=== PATIENT | female | born 1970 | race Caucasian/White ===

== ENCOUNTER 2017-04-16 15:42 | Emergency (ER) | payer OTHER ==
[~2017-04-16] VITALS: Ht 162.6 cm; Wt 76.0 kg
[2017-04-16] MEDS ORDERED: LISI-538 (16:00)
[2017-04-16] MEDS ORDERED: PHEN-500 (16:00)
[2017-04-16] MEDS ORDERED: NUCY50TA6 PO (16:00)
[2017-04-16] MEDS ORDERED: IBUP-1022 (16:00)
[2017-04-16] MEDS ORDERED: ESTR1TAB (16:00)
[2017-04-16] MEDS ORDERED: BUPR150T3 (16:00)
[2017-04-16] MEDS ORDERED: LATA5OPD (16:00)
[2017-04-16] MEDS ORDERED: GABA-282 (16:00)
[2017-04-16] MEDS ORDERED: NUCY50TA6 (16:00)
[2017-04-16] MEDS ORDERED: NITR100C2 (16:00)
[2017-04-16] MEDS ORDERED: PHENYLEPHRINE 2.5% OPHTH SOL 2ML OS ONE (18:00)
[2017-04-16] MEDS ORDERED: TROPICAMIDE 0.5% OPHTH SOLN 15 ML OS ONE (18:15)
[2017-04-16 19:27] VITALS: BP 116/68
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
== END 2017-04-16 19:28 | disposition home or self-care (01) ==
LOC: M ED 15:42
DX: S05.8X2A Other injuries of left eye and orbit, initial encounter (principal); H43.89 Other disorders of vitreous body; H53.132 Sudden visual loss, left eye; Y04.8XXA Assault by other bodily force, initial encounter; Y92.199 Unspecified place in other specified residential institution as the place of occurrence of the external cause; Y93.89 Activity, other specified; Y99.0 Civilian activity done for income or pay; H40.9 Unspecified glaucoma; F32.9 Major depressive disorder, single episode, unspecified; Z79.899 Other long term (current) drug therapy

== ENCOUNTER 2017-05-21 21:48 | Emergency (ER) | payer BC, OTHER, SELFPAY ==
[~2017-05-21] VITALS: Ht 162.6 cm; Wt 73.5 kg
[~2017-05-21 21:48] MED LIST: BUPR150T3; ESTR1TAB; GABA-282; IBUP-1022; LATA5OPD; LISI-538; NITR100C2; NUCY50TA6; NUCY50TA6 PO; PHEN-500
[2017-05-21] MEDS ORDERED: CALCCHW19 PO (22:03)
[2017-05-21] MEDS ORDERED: MULTCAP11 PO (22:03)
[2017-05-21] MEDS ORDERED: VITA100L PO (22:03)
[2017-05-21] MEDS ORDERED: NS 1,000 ML IV ONE (22:30)
[2017-05-21] MEDS ORDERED: ADACEL/BOOSTRIX VACCINE (DIPHTH/PERTUSS/ACELL/TETANUS)0.5ML SYR (90715) IM ONE (22:30)
[2017-05-21 23:34] LABS: BASO # 0.1 K/mm3 (0.0-0.2); BASO % 1.1 % (0.0-1.0); EOS # 0.2 K/mm3 (0.0-0.50); EOS % 2.2 % (0.0-3.0); LARGE UNSTAINED CELL # 0.2 K/mm3 (0.0-0.4); LARGE UNSTAINED CELL % 2.2 % (0.0-4.0); LYMPH # 1.6 K/mm3 (1.5-4.5); LYMPH % 19.6 % (24.0-44.0); MEAN CORPUSCULAR HEMOGLOBIN 30.8 pg (27.0-33.0); MEAN CORPUSCULAR HGB CONC 33.7 g/dl (32.0-36.5); MEAN CORPUSCULAR VOLUME 91.5 fl (80.0-96.0); MONO # 0.5 K/mm3 (0.0-0.8); MONO % 6.3 % (0.0-5.0); NEUTROPHILS # 5.8 K/mm3 (1.8-7.7); NEUTROPHILS % 68.7 % (36.0-66.0); PLATELET COUNT, AUTOMATED 263 k/mm3 (150-450); WHITE BLOOD COUNT 8.4 K/mm3 (4.0-10.0)
[2017-05-21 23:40] LABS: INR 0.93
[2017-05-21 23:58] LABS: ALBUMIN 4.2 GM/DL (3.2-5.2); ALBUMIN/GLOBULIN RATIO 1.27 (1.00-1.93); ALKALINE PHOSPHATASE 84 U/L (45-117); ALT/SGPT 35 U/L (12-78); ANION GAP 4 MEQ/L (8-16); AST/SGOT 25 U/L (15-37); BILIRUBIN,DIRECT 0.1 MG/DL (0.0-0.2); BILIRUBIN,TOTAL 0.3 MG/DL (0.2-1.0); BLOOD UREA NITROGEN 26 MG/DL (7-18); CALCIUM LEVEL 9.3 MG/DL (8.5-10.1); CARBON DIOXIDE LEVEL 33 MEQ/L (21-32); CHLORIDE LEVEL 106 MEQ/L (98-107); CREATININE FOR GFR 0.93 MG/DL (0.55-1.02); GLOMERULAR FILTRATION RATE > 60.0 (>58); GLUCOSE, FASTING 99 MG/DL (70-105); POTASSIUM SERUM 3.4 MEQ/L (3.5-5.1); SODIUM LEVEL 143 MEQ/L (136-145); TOTAL PROTEIN 7.5 GM/DL (6.4-8.2)
[2017-05-22] MEDS ORDERED: ISOVUE-370 76% 100ML VIAL (Q9967) As Ordered ONE (00:06)
--- NOTE | 2017-05-22 01:20 | REPUSA ---
CLINICAL HISTORY: Neck pain. TECHNIQUE: Multiple axial images were obtained through the cervical spine. Images were also reconstru cted in coronal and sagittal planes. The study was performed without IV contrast. COMMENTS: There is no fracture or spondylolisthesis visualized. The paraspinal soft tissues are unremarkable. T here are no lytic or blastic lesions. Straightening of cervical lordosis is seen, suggesting muscular spasm. There is evidence of minimal m ultilevel disk disease, demonstrated by minimal osteophytosis and endplate sclerosis. No significant disk herniation is noted at any level. Canal and foramina remain patent. IMPRESSION: 1. No fracture or spondylolisthesis. 2. Straightening of cervical lordosis is seen, suggesting muscular spasm. 3. Minimal multilevel spondylosis. Thank you for your kind referral of this patient.
--- NOTE | 2017-05-22 01:40 | REPUSA ---
CLINICAL HISTORY: Trauma. TECHNIQUE: Multiple axial CT images were obtained through chest with IV contrast material. MPR pierre l and sagittal sequences were obtained. COMMENTS: Basilar atelectatic pulmonary changes. There is no evidence of pleural or parenchymal mass. There are no pleural effusions. There is no evid ence of hilar or mediastinal lymphadenopathy. The heart and great vessels are within normal limits. The visualized portions of the liver are of uniform attenuation without mass or defect. There is no i ntra or extrahepatic biliary ductal dilatation. The spleen is unremarkable. The visualized pancreas i s of normal contour and attenuation characteristics. There is no evidence of adrenal mass. The visual ized portions of the kidneys present no abnormalities. The bony structures are free of lytic or blastic lesions. No evidence for abnormal enhancement. IMPRESSION: No evidence of acute thoracic pathology. Thank you for your kind referral of this patient.
--- NOTE | 2017-05-22 01:40 | REPUSA ---
CLINICAL HISTORY: Abdominal pain. TECHNIQUE: Multiple axial, sagittal and coronal CT images were obtained through the abdomen and pelvi s after administration of oral and intravenous contrast material. COMMENTS: Surgical changes of the stomach. The liver is of uniform attenuation without mass or defect. There is no intra or extrahepatic biliary ductal dilatation. The spleen is normal. The gallbladder is surgically absent. The pancreas is of no rmal contour and attenuation characteristics. There is no evidence of adrenal mass. Both kidneys demonstrate prompt and equal nephrograms. The kidneys are normal in size, shape and conf iguration. There is no evidence of renal or ureteral mass. No renal or ureteral calculi are identifie d. There is no hydroureter or hydronephrosis. No evidence for appendicitis. There is no bowel wall thickening. No evidence for small or large ron l obstruction. There is no evidence of abdominal ascites or lymphadenopathy. There is no evidence of intrinsic or extrinsic bladder mass. There is no pelvic ascites or lymphadeno priscila. Images of the lung bases show no evidence of pleural or parenchymal mass. There are no pleural effusi ons. The bony structures are free of lytic or blastic lesions. IMPRESSION: No evidence of acute abdominal or pelvic pathology. Thank you for your kind referral of this patient.
[2017-05-22] MEDS ORDERED: CIPR-249 PO (01:53)
[2017-05-22 02:10] VITALS: BP 120/72
--- NOTE | 2017-05-22 07:20 | ECGEPIP ---
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
--- NOTE | 2017-05-22 07:37 | REP ---
Right hand four views : There is no fracture or dislocation. Mineralization and joint spaces are normal. There are no calcifications or foreign bodies. Impression: Negative right hand . Signed by Abdullahi Brown MD 05/22/2017 07:28 A
--- NOTE | 2017-05-22 07:38 | REP ---
Bilateral knees: Right knee five views: There is tricompartment osteoarthritis. There is no fracture or dislocation. There is no hemarthrosis. No calcifications or foreign bodies. Impression: Tricompartment osteoarthritis. Left knee five views: There is tricompartment osteoarthritis. There is no joint effusion. There is no fracture or dislocation. There are no calcifications or foreign bodies. Impression: Tricompartment osteoarthritis. Signed by Abdullahi Brown MD 05/22/2017 07:29 A
== END 2017-05-22 02:38 | disposition home or self-care (01) ==
LOC: M ED 21:48 → EDUNIT# 21:48 → EDBD 21:48 → M ED 05-22 02:38
DX: N39.0 Urinary tract infection, site not specified (principal); M25.561 Pain in right knee; M25.562 Pain in left knee; V47.5XXA Car driver injured in collision with fixed or stationary object in traffic accident, initial encounter; Y92.410 Unspecified street and highway as the place of occurrence of the external cause; Y93.9 Activity, unspecified; Y99.8 Other external cause status; M17.11 Unilateral primary osteoarthritis, right knee; F32.9 Major depressive disorder, single episode, unspecified; G80.9 Cerebral palsy, unspecified; Z79.899 Other long term (current) drug therapy
CPT/HCPCS: 36415; 70450; 71260; 72125; 73130; 73564; 74177; 80048; 80076; 81001; 82550; 82553; 85025; 85610; 85730; 86850; 86900; 86901; 90472; 90715; 93005; 93041; 94760; 96360; 96361; 99285; G0480; Q9967

== ENCOUNTER 2017-09-06 11:41 | Emergency (ER) | payer OTHER, BC ==
[~2017-09-06] VITALS: Ht 162.6 cm; Wt 70.9 kg
[~2017-09-06 11:41] MED LIST changes: -BUPR150T3; +BUPR150T3 PO; +CALCCHW19 PO; +CIPR-249 PO; -GABA-282; +GABA-282 PO; -LISI-538; +LISI-538 PO; +MULTCAP11 PO; +VITA100L PO
[2017-09-06 11:56] VITALS: BP 130/65
[2017-09-06] MEDS ORDERED: KETOROLAC 60 MG/2 ML VIAL (J1885) IM ONE (14:00)
[2017-09-06] MEDS ORDERED: PERC5TAB12 PO (14:32)
[2017-09-06] MEDS ORDERED: CYCL10TA PO (14:32)
== END 2017-09-06 14:54 | disposition home or self-care (01) ==
LOC: M ED 11:41
DX: M54.5 Low back pain (principal); G89.29 Other chronic pain; X50.9XXA Other and unspecified overexertion or strenuous movements or postures, initial encounter; Y92.59 Other trade areas as the place of occurrence of the external cause; Y93.F9 Activity, other caregiving; Y99.0 Civilian activity done for income or pay; Z79.899 Other long term (current) drug therapy; Z79.890 Hormone replacement therapy; Z98.84 Bariatric surgery status; Z83.3 Family history of diabetes mellitus
CPT/HCPCS: 96372; 99283; J1885

== ENCOUNTER → 2017-12-21 | Outpatient (CLI) | payer BC | LOC: M RAD 13:46 | DX: Z12.31 Encounter for screening mammogram for malignant neoplasm of breast (principal) | CPT/HCPCS: 77067 ==

== ENCOUNTER → 2018-12-16 | Outpatient (CLI) | payer OTHER, MEDICAID ==
[~2018-12-16] MED LIST changes: +CYCL10TA PO; -GABA-282 PO; +GABA-843 PO; +NUCY50TA19; +NUCY50TA19 PO; -NUCY50TA6; -NUCY50TA6 PO; +PERC5TAB12 PO
[2018-12-16 11:09] LABS: HEMATOCRIT 41.9 % (36.0-47.0); HEMOGLOBIN 13.9 g/dl (12.0-15.5); MEAN CORPUSCULAR HEMOGLOBIN 30.4 pg (27.0-33.0); MEAN CORPUSCULAR HGB CONC 33.2 g/dl (32.0-36.5); MEAN CORPUSCULAR VOLUME 91.7 fl (80.0-96.0); PLATELET COUNT, AUTOMATED 241 10^3/uL (150-450); RED BLOOD COUNT 4.57 10^6/uL (4.00-5.40); WHITE BLOOD COUNT 5.9 10^3/uL (4.0-10.0)
[2018-12-16 11:35] LABS: ALT/SGPT 20 U/L (12-78); BILIRUBIN,TOTAL 0.6 MG/DL (0.2-1.0); BLOOD UREA NITROGEN 24 MG/DL (7-18); CALCIUM LEVEL 9.4 MG/DL (8.5-10.1); CARBON DIOXIDE LEVEL 33 MEQ/L (21-32); CHLORIDE LEVEL 102 MEQ/L (98-107); CHOLESTEROL LEVEL 201 MG/DL (<200); CHOLESTEROL RISK RATIO 2.233 (<5); CREATININE FOR GFR 0.56 MG/DL (0.55-1.30); GLOMERULAR FILTRATION RATE > 60.0 (>58); GLUCOSE, FASTING 80 MG/DL (70-100); HDL CHOLESTEROL 90 MG/DL (>40); LDL CHOLESTEROL 96 MG/DL (<100); NON-HDL-C 111 MG/DL; POTASSIUM SERUM 4.3 MEQ/L (3.5-5.1); SODIUM LEVEL 141 MEQ/L (136-145); TOTAL PROTEIN 6.8 GM/DL (6.4-8.2); TRIGLYCERIDES LEVEL 77 MG/DL (<150)
[2018-12-16 11:57] LABS: TOTAL 25(OH) VITAMIN D 39.9 NG/ML (30.0-100.0)
--- NOTE | 2018-12-16 12:24 | REP ---
CERVICAL SPINE SERIES: Seven views cervical spine performed. These include flexion and extension lateral views. There is no compression or malalignment with normal cervical lordosis. There is no prevertebral soft tissue swelling. There is mild spurring anteriorly of C3 and C4. There is mild to moderate posterior osteophytic ridging at C6-7. There is mild disc space narrowing at that level. Uncovertebral spurring appears to cause mild to moderate neural foraminal narrowing at C6-7 on the left. IMPRESSION: Degenerative changes as above. I suspect mild to moderate neural foramina narrowing on the left at the C6-7 level. Electronically Signed by Abdullahi Carlson MD 12/19/2018 11:07 A
== END ==
LOC: M LAB 09:59
PROVIDERS: ATTEND Nurse Practitioner Family
DX: I10 Essential (primary) hypertension (principal); R53.83 Other fatigue; M54.2 Cervicalgia

== ENCOUNTER → 2019-02-23 | Outpatient (CLI) | payer OTHER, MEDICAID ==
[~2019-02-23] MED LIST changes: +LATA0.0013; -LATA5OPD
[2019-02-23 10:22] LABS: HEMATOCRIT 42.9 % (36.0-47.0); HEMOGLOBIN 14.1 g/dl (12.0-15.5); MEAN CORPUSCULAR HEMOGLOBIN 31.5 pg (27.0-33.0); MEAN CORPUSCULAR HGB CONC 32.9 g/dl (32.0-36.5); PLATELET COUNT, AUTOMATED 224 10^3/uL (150-450); RED BLOOD COUNT 4.47 10^6/uL (4.00-5.40); WHITE BLOOD COUNT 4.9 10^3/uL (4.0-10.0)
[2019-02-23 10:28] LABS: APPEARANCE, URINE CLEAR (CLEAR); BACTERIA, URINE AUTO NEGATIVE (NEGATIVE); BILIRUBIN, URINE AUTO NEGATIVE (NEGATIVE); BLOOD, URINE BLOOD NEGATIVE (NEGATIVE); COLOR, URINE YELLOW (YELLOW); GLUCOSE, URINE (UA) AUTO NEGATIVE (NEGATIVE); KETONE, URINE AUTO NEGATIVE (NEGATIVE); LEUKOCYTE ESTERASE, URINE AUTO NEGATIVE (NEGATIVE); NITRITE, URINE AUTO NEGATIVE (NEGATIVE); PROTEIN, URINE AUTO NEGATIVE (NEGATIVE); RBC, URINE AUTO 0 /HPF (0-3); SPECIFIC GRAVITY URINE AUTO 1.018 (1.002-1.035); SQUAMOUS EPITHELIAL CELL UR AU 0 /HPF (0-6); UROBILINOGEN, URINE AUTO 0.2 mg/dL (0.0-2.0); WBC, URINE AUTO 0 /HPF (0-3)
[2019-02-23 10:50] LABS: ALBUMIN 3.8 GM/DL (3.2-5.2); ALT/SGPT 19 U/L (12-78); BILIRUBIN,TOTAL 0.5 MG/DL (0.2-1.0); BLOOD UREA NITROGEN 20 MG/DL (7-18); CALCIUM LEVEL 8.8 MG/DL (8.5-10.1); CARBON DIOXIDE LEVEL 33 MEQ/L (21-32); CHLORIDE LEVEL 105 MEQ/L (98-107); CPK CREATINE PHOSPHOKINASE 117 U/L (26-192); CREATININE FOR GFR 0.64 MG/DL (0.55-1.30); GLOMERULAR FILTRATION RATE > 60.0 (>58); GLUCOSE, FASTING 77 MG/DL (70-100); POTASSIUM SERUM 4.2 MEQ/L (3.5-5.1); SODIUM LEVEL 142 MEQ/L (136-145); TOTAL PROTEIN 6.9 GM/DL (6.4-8.2)
[2019-02-23 10:52] LABS: ERYTHROCYTE SEDIMENTATION RATE 7 mm/hr (0-20)
[2019-02-23 10:58] LABS: MALB URINE SIEMENS < 5.0 MG/L; MAU/CREAT RATIO 4.3 MCG/MG (0.0-30.0)
[2019-02-23 11:00] LABS: FOLATE > 24.0 NG/ML
[2019-02-23 11:05] LABS: VITAMIN B12 LEVEL 739 PG/ML
[2019-02-24 14:11] LABS: ANTINUCLEAR ANTIBODIES DIRECT Negative (Negative)
[2019-02-28 10:38] LABS: DRVV SCREEN 40.8 SEC
[2019-03-01 14:11] LABS: ANTI DS-DNA AB <1:10 titer (.)
== END ==
LOC: M LAB 09:12
PROVIDERS: ATTEND Nurse Practitioner Family
DX: M79.10 Myalgia, unspecified site (principal); E53.8 Deficiency of other specified B group vitamins

== ENCOUNTER 2019-11-03 06:00 | Emergency (ER) | payer BC, MEDICAID, OTHER, SELFPAY ==
[~2019-11-03] VITALS: Ht 162.6 cm; Wt 76.8 kg
[2019-11-03 06:33] LABS: BASO # 0.1 10^3/uL (0.0-0.2); EOS # 0.1 10^3/uL (0.0-0.5); EOS % 1.4 % (0.0-3.0); HEMATOCRIT 45.8 % (36.0-47.0); HEMOGLOBIN 14.6 g/dl (12.0-15.5); LYMPH # 1.3 10^3/uL (1.5-5.0); LYMPH % 20.7 % (24.0-44.0); MEAN CORPUSCULAR HEMOGLOBIN 29.3 pg (27.0-33.0); MEAN CORPUSCULAR HGB CONC 31.9 g/dl (32.0-36.5); MONO # 0.5 10^3/uL (0.0-0.8); MONO % 8.5 % (0.0-5.0); NEUTROPHILS # 4.3 10^3/uL (1.5-8.5); NEUTROPHILS % 68.1 % (36.0-66.0); PLATELET COUNT, AUTOMATED 231 10^3/uL (150-450); RED BLOOD COUNT 4.98 10^6/uL (4.00-5.40); WHITE BLOOD COUNT 6.3 10^3/uL (4.0-10.0)
[2019-11-03 06:48] LABS: INR 0.97; PROTHROMBIN TIME 12.6 SECONDS (11.8-14.0)
[2019-11-03 07:03] LABS: ALBUMIN 4.1 GM/DL (3.2-5.2); ALT/SGPT 21 U/L (12-78); BILIRUBIN,DIRECT 0.1 MG/DL (0.0-0.2); BILIRUBIN,TOTAL 0.5 MG/DL (0.2-1.0); CK-MB VALUE MASS 1.8 NG/ML (<3.6); CPK CREATINE PHOSPHOKINASE 244 U/L (26-192); LIPASE 129 U/L (73-393); MB/CK RELATIVE INDEX 0.74 (< OR =4); TOTAL PROTEIN 7.2 GM/DL (6.4-8.2); TROPONIN I < 0.02 NG/ML (< 0.10)
[2019-11-03] MEDS ORDERED: MECLIZINE 25 MG TABLET PO ONE (07:15)
[2019-11-03] MEDS ORDERED: hydroCHLOROthiazide 12.5 MG CAPSULE PO ONE (07:15)
[2019-11-03] MEDS ORDERED: lisinopriL 10 MG TAB PO ONE (07:15)
[2019-11-03 07:36] VITALS: BP 172/105
--- NOTE | 2019-11-03 07:54 | REPVR ---
PROCEDURE INFORMATION: Exam: CT Head Without Contrast Exam date and time: 11/03/2019 7:03 AM Age: 48 years old Clinical indication: Dizziness; Additional info: Dizzzy TECHNIQUE: Imaging protocol: Computed tomography of the head without contrast. Radiation optimization: All CT scans at this facility use at least one of these dose optimization techniques: automated exposure control; mA and/or kV adjustment per patient size (includes targeted exams where dose is matched to clinical indication); or iterative reconstruction. COMPARISON: CT Head without contrast 05/22/2017 12:06 AM FINDINGS: Brain: Normal. No hemorrhage. Unremarkable white matter. No mass effect. Ventricles: The ventricles and sulci are stable in configuration. Bones/joints: Unremarkable. No acute fracture. Sinuses: Visualized sinuses are unremarkable. No fluid levels. Mastoid air cells: Visualized mastoid air cells are well aerated. Soft tissues: Unremarkable. IMPRESSION: No CT evidence for acute intracranial abnormality or significant change since 05/22/17. Electronically signed by: Enoc Jackson On 11/03/2019 07:53:37 AM
--- NOTE | 2019-11-03 07:55 | REP ---
Portable chest, 07:27 a.m., single AP view with the patient upright: There are no comparisons. The lung paz are clear. The cardiac size is normal. The cyrus, mediastinum, and skeletal structures are unremarkable. Impression: Negative portable chest. Electronically Signed by Abdullahi Brown MD 11/03/2019 07:47 A
[2019-11-03] MEDS ORDERED: LISI10TA15 PO (09:57)
[2019-11-03] MEDS ORDERED: MECL1TAB31 PO (09:57)
[2019-11-03 10:39] VITALS: BP 155/95
--- NOTE | 2019-11-03 20:26 | ECGEPIP ---
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
== END 2019-11-03 10:42 | disposition home or self-care (01) ==
LOC: M ED 06:00
DX: I10 Essential (primary) hypertension (principal); R53.1 Weakness; H81.399 Other peripheral vertigo, unspecified ear

== ENCOUNTER → 2019-12-20 | Outpatient (CLI) | payer BC ==
[~2019-12-20] MED LIST changes: +LISI10TA15 PO; +MECL1TAB31 PO
--- NOTE | 2019-12-20 16:58 | REP ---
MRI right knee without contrast: History: Osteoarthritis. Rule out occult fracture. Comparison radiographs of the right knee are from May 21, 2017. Technique: Axial, coronal and sagittal imaging planes utilized. T1 and T2-weighted scans were obtained in the usual fashion with and without fat saturation. MRI findings: Cortical and medullary bone signal intensity are normal. There is no evidence of occult fracture. There is a small to moderate knee joint effusion. No discernible Saenz's cyst is appreciated. There is advanced three compartment osteoarthritis with tibial, femoral and patellofemoral well established osteophyte formation. There is moderate chondromalacia in the central patellar articular cartilage and in the opposing femoral trochlear articular cartilage. There is advanced chondromalacia change in the medial compartment with full-thickness T2 hyperintensity and some diffuse thinning on both sides of the tibiofemoral articulation medially. There is moderate partial thickness chondromalacia in the lateral femoral condyle. The patellar and quadriceps tendons appear intact. Anterior cruciate ligament is thin and is bowed by some femoral trochlear spurs, but appears to be intact. Posterior cruciate ligament appears intact. There is medial bowing of the intact medial collateral ligament. No evidence of lateral collateral ligament disruption is seen. There is mild medial meniscal extrusion. There is a complex principally vertical tear in the posterior horn of the medial meniscus. The anterior horn of the medial meniscus is quite diminutive and this is associated with the medial extrusion. No displaced meniscal material is appreciated. No lateral meniscal tear is seen. Impression: Advanced three compartment osteoarthritis. No evidence of occult fracture. Joint effusion. Advanced chondromalacia changes most pronounced medially. Posterior horn degenerative tear medial meniscus. Electronically Signed by Chuck Major MD 12/20/2019 05:02 P
== END ==
LOC: M RAD 14:54
PROVIDERS: ATTEND Physician Assistant Surgical
DX: M17.11 Unilateral primary osteoarthritis, right knee (principal)

== ENCOUNTER 2021-01-08 16:16 | Emergency (ER) | payer BC ==
[~2021-01-08] VITALS: Ht 162.6 cm; Wt 82.1 kg
[~2021-01-08 16:16] MED LIST changes: +BUPR150T12 PO; -BUPR150T3 PO; +CYCL-707 PO; -CYCL10TA PO; +GABA-282 PO; -GABA-843 PO; -LISI-538 PO; +LISI20TA33 PO
[2021-01-08] MEDS ORDERED: ROSU5TAB5 (16:38)
[2021-01-08] MEDS ORDERED: CYCL100C5 PO (16:38)
[2021-01-08] MEDS ORDERED: LISI10TA15 PO (16:43)
[2021-01-08 18:12] LABS: BASO # 0.1 10^3/uL (0.0-0.2); BASO % 0.8 % (0.0-1.0); EOS # 0.2 10^3/uL (0.0-0.5); EOS % 2.2 % (0.0-3.0); HEMATOCRIT 39.6 % (36.0-47.0); HEMOGLOBIN 13.2 g/dl (12.0-15.5); LYMPH # 1.8 10^3/uL (1.5-5.0); LYMPH % 17.6 % (24.0-44.0); MEAN CORPUSCULAR HEMOGLOBIN 31.1 pg (27.0-33.0); MEAN CORPUSCULAR HGB CONC 33.3 g/dl (32.0-36.5); MEAN CORPUSCULAR VOLUME 93.4 fl (80.0-96.0); MONO # 0.9 10^3/uL (0.0-0.8); MONO % 8.3 % (2.0-8.0); NEUTROPHILS # 7.2 10^3/uL (1.5-8.5); NEUTROPHILS % 70.8 % (36.0-66.0); PLATELET COUNT, AUTOMATED 231 10^3/uL (150-450); RED BLOOD COUNT 4.24 10^6/uL (4.00-5.40); WHITE BLOOD COUNT 10.2 10^3/uL (4.0-10.0)
[2021-01-08] MEDS ORDERED: NS 1,000 ML IV ONE (18:20)
[2021-01-08] MEDS ORDERED: KETOROLAC 30 MG/ML 1ML VIAL IV ONE (18:20)
[2021-01-08 18:36] LABS: HCG, SERUM QUALITATIVE NEGATIVE (NEGATIVE)
[2021-01-08 18:40] LABS: ALBUMIN 3.9 GM/DL (3.2-5.2); ALT/SGPT 22 U/L (12-78); BILIRUBIN,DIRECT 0.2 MG/DL (0.0-0.2); BILIRUBIN,TOTAL 0.4 MG/DL (0.2-1.0); LIPASE 149 U/L (73-393); TOTAL PROTEIN 6.9 GM/DL (6.4-8.2)
--- NOTE | 2021-01-08 19:05 | REPVR ---
PROCEDURE INFORMATION: Exam: CT Abdomen And Pelvis Without Contrast Exam date and time: 01/08/2021 6:47 PM Age: 50 years old Clinical indication: Abdominal pain; Localized; Right; Additional info: Right flank pain TECHNIQUE: Imaging protocol: Computed tomography of the abdomen and pelvis without contrast. Radiation optimization: All CT scans at this facility use at least one of these dose optimization techniques: automated exposure control; mA and/or kV adjustment per patient size (includes targeted exams where dose is matched to clinical indication); or iterative reconstruction. COMPARISON: CT ABD PELVIS WITH CONTRAST 05/22/2017 12:20 AM FINDINGS: Mediastinal space: A small sliding hiatal hernia is present. Liver: Normal. No mass. Gallbladder and bile ducts: There has been a cholecystectomy. Pancreas: Normal. No ductal dilation. Spleen: Normal. No splenomegaly. Adrenal glands: Normal. No mass. Kidneys and ureters: Normal. No hydronephrosis. Stomach and bowel: This patient is status post gastric bypass surgery. There is increased feces throughout the colon consistent with constipation. Appendix: The appendix is within normal limits. There is no appendiceal enlargement, periappendiceal inflammatory changes or abscess. Intraperitoneal space: Unremarkable. No free air. No significant fluid collection. Vasculature: Unremarkable. No abdominal aortic aneurysm. Lymph nodes: Unremarkable. No enlarged lymph nodes. Urinary bladder: Unremarkable as visualized. Reproductive: There has been a hysterectomy. Bones/joints: Moderate central spinal stenosis L4-L5. Bulging annulus L5-S1. Shallow dextroscoliosis. Soft tissues: Unremarkable. IMPRESSION: 1. This patient is status post gastric bypass surgery. 2. A small sliding hiatal hernia is present. 3. There has been a cholecystectomy. 4. The appendix is within normal limits. There is no appendiceal enlargement, periappendiceal inflammatory changes or abscess. 5. There is increased feces throughout the colon consistent with constipation. 6. There has been a hysterectomy. Electronically signed by: Helio Flores On 01/08/2021 19:06:00 PM
[2021-01-08] MEDS ORDERED: CIPROFLOXACIN 500MG TABLET PO ONE (19:10)
[2021-01-08] MEDS ORDERED: CIPR-249 PO (20:00)
[2021-01-08 20:29] VITALS: BP 165/99
== END 2021-01-08 20:34 | disposition home or self-care (01) ==
LOC: M ED 16:16
DX: N39.0 Urinary tract infection, site not specified (principal); R51.9 Headache, unspecified; R42 Dizziness and giddiness; Z98.84 Bariatric surgery status; Z90.49 Acquired absence of other specified parts of digestive tract; Z90.710 Acquired absence of both cervix and uterus; K59.00 Constipation, unspecified; I10 Essential (primary) hypertension; E78.5 Hyperlipidemia, unspecified; G80.9 Cerebral palsy, unspecified; M54.9 Dorsalgia, unspecified; F33.9 Major depressive disorder, recurrent, unspecified; Z79.899 Other long term (current) drug therapy
CPT/HCPCS: 74176; 80047; 80076; 81001; 83690; 84703; 85025; 87088; 87186; 96361; 96374; 99284; J1885

== ENCOUNTER → 2021-01-15 | Outpatient (CLI) | payer BC ==
[~2021-01-15] MED LIST changes: +CYCL100C5 PO; +ROSU5TAB5
[2021-01-15 11:38] LABS: BASO # 0.1 10^3/uL (0.0-0.2); BASO % 1.3 % (0.0-1.0); EOS # 0.2 10^3/uL (0.0-0.5); EOS % 2.9 % (0.0-3.0); HEMATOCRIT 42.3 % (36.0-47.0); HEMOGLOBIN 13.8 g/dl (12.0-15.5); LYMPH % 27.5 % (24.0-44.0); MEAN CORPUSCULAR HEMOGLOBIN 30.5 pg (27.0-33.0); MEAN CORPUSCULAR HGB CONC 32.6 g/dl (32.0-36.5); MEAN CORPUSCULAR VOLUME 93.4 fl (80.0-96.0); MONO # 0.6 10^3/uL (0.0-0.8); MONO % 8.6 % (2.0-8.0); NEUTROPHILS # 4.3 10^3/uL (1.5-8.5); NEUTROPHILS % 59.3 % (36.0-66.0); PLATELET COUNT, AUTOMATED 267 10^3/uL (150-450); RED BLOOD COUNT 4.53 10^6/uL (4.00-5.40); WHITE BLOOD COUNT 7.2 10^3/uL (4.0-10.0)
== END ==
LOC: M LAB 10:54
PROVIDERS: ATTEND Registered Nurse
DX: M25.561 Pain in right knee (principal)

== ENCOUNTER → 2021-01-15 | Outpatient (CLI) | payer BC ==
[2021-01-15 11:40] LABS: HEMOGLOBIN 13.9 g/dl (12.0-15.5); MEAN CORPUSCULAR HEMOGLOBIN 30.9 pg (27.0-33.0); MEAN CORPUSCULAR HGB CONC 33.1 g/dl (32.0-36.5); MEAN CORPUSCULAR VOLUME 93.3 fl (80.0-96.0); PLATELET COUNT, AUTOMATED 269 10^3/uL (150-450); WHITE BLOOD COUNT 7.1 10^3/uL (4.0-10.0)
[2021-01-15 11:50] LABS: INR 0.85; PROTHROMBIN TIME 11.8 SECONDS (12.5-14.3)
[2021-01-15 12:14] LABS: ERYTHROCYTE SEDIMENTATION RATE 27 mm/hr (0-20)
[2021-01-15 12:21] LABS: ALBUMIN 3.9 GM/DL (3.2-5.2); ALT/SGPT 18 U/L (12-78); BILIRUBIN,TOTAL 0.5 MG/DL (0.2-1.0); BLOOD UREA NITROGEN 27 MG/DL (7-18); CALCIUM LEVEL 9.9 MG/DL (8.5-10.1); CARBON DIOXIDE LEVEL 32 MEQ/L (21-32); CHLORIDE LEVEL 108 MEQ/L (98-107); CREATININE FOR GFR 0.91 MG/DL (0.55-1.30); GLOMERULAR FILTRATION RATE > 60.0 (>58); GLUCOSE, FASTING 84 MG/DL (70-100); POTASSIUM SERUM 4.8 MEQ/L (3.5-5.1); SODIUM LEVEL 142 MEQ/L (136-145)
--- NOTE | 2021-01-15 14:32 | REP ---
INDICATION: PRE OP TESTING/RIGHT KNEE PAIN / LAB . COMPARISON: None. TECHNIQUE: PA and lateral chest. FINDINGS: The cardiovascular silhouette is within normal limits. The lungs are clear. Mediastinum and bony thorax are unremarkable. IMPRESSION: Normal chest. <Electronically signed by Amador Li > 01/15/21 1427
--- NOTE | 2021-01-15 17:09 | ECGEPIP ---
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
== END ==
LOC: M LAB 10:56
PROVIDERS: ATTEND Orthopaedic Surgery
DX: Z01.818 Encounter for other preprocedural examination (principal); M17.11 Unilateral primary osteoarthritis, right knee

== ENCOUNTER 2021-03-30 12:02 | Emergency (ER) | payer BC, MEDICAID, OTHER, SELFPAY ==
[~2021-03-30] VITALS: Ht 152.4 cm; Wt 75.9 kg
[2021-03-30 12:46] LABS: BASO # 0.1 10^3/uL (0.0-0.2); BASO % 0.8 % (0.0-1.0); EOS # 0.2 10^3/uL (0.0-0.5); EOS % 1.8 % (0.0-3.0); HEMATOCRIT 40.2 % (36.0-47.0); HEMOGLOBIN 12.9 g/dl (12.0-15.5); LYMPH # 1.6 10^3/uL (1.5-5.0); LYMPH % 19.3 % (24.0-44.0); MEAN CORPUSCULAR HEMOGLOBIN 29.6 pg (27.0-33.0); MEAN CORPUSCULAR HGB CONC 32.1 g/dl (32.0-36.5); MEAN CORPUSCULAR VOLUME 92.2 fl (80.0-96.0); MONO # 0.6 10^3/uL (0.0-0.8); MONO % 7.4 % (2.0-8.0); NEUTROPHILS # 5.8 10^3/uL (1.5-8.5); NEUTROPHILS % 70.3 % (36.0-66.0); PLATELET COUNT, AUTOMATED 275 10^3/uL (150-450); RED BLOOD COUNT 4.36 10^6/uL (4.00-5.40); WHITE BLOOD COUNT 8.3 10^3/uL (4.0-10.0)
--- NOTE | 2021-03-30 13:07 | REP ---
INDICATION: CHEST PAIN. COMPARISON: 01/15/2021 FINDINGS: The technique utilized in obtaining the radiograph has magnified the cardiac silhouette and accentuated the interstitial markings. The superior mediastinal structures are midline. The cardiac silhouette is unremarkable in size, shape, and position. The diaphragmatic surfaces of the lungs are regular, and the costophrenic angles are clear. The pulmonary paz are clear. The imaged osseous structures are intact. Incidental note is made of a calcified lymph node in the left hilum which has been stable for years. This was seen on chest CT of 05/22/2017. IMPRESSION: There is no acute cardiopulmonary disease. <Electronically signed by Anton Bassett > 03/30/21 [id number]
[2021-03-30 13:13] LABS: BLOOD UREA NITROGEN 34 MG/DL (7-18); CALCIUM LEVEL 9.7 MG/DL (8.5-10.1); CARBON DIOXIDE LEVEL 30 MEQ/L (21-32); CHLORIDE LEVEL 101 MEQ/L (98-107); CK-MB VALUE MASS < 1.0 NG/ML (<3.6); CPK CREATINE PHOSPHOKINASE 92 U/L (26-192); CREATININE FOR GFR 1.07 MG/DL (0.55-1.30); GLUCOSE, FASTING 122 MG/DL (70-100); MB/CK RELATIVE INDEX 1.09 (< OR =4); POTASSIUM SERUM 3.8 MEQ/L (3.5-5.1); SODIUM LEVEL 135 MEQ/L (136-145); TROPONIN I < 0.02 NG/ML (< 0.10)
[2021-03-30] MEDS ORDERED: METOCLOPRAMIDE INJ 10MG/2ML VIAL (J2765 PER 1) IV ONE (13:40)
[2021-03-30] MEDS ORDERED: diphenhydrAMINE 50MG/ML VIAL (J1200) IV ONE (13:40)
[2021-03-30] MEDS ORDERED: NS 1,000 ML IV ONE (13:40)
[2021-03-30] MEDS ORDERED: ACETAMINOPHEN 500 MG TAB PO ONE (13:40)
[2021-03-30 14:01] LABS: C REACTIVE PROTEIN QUANTITATIV < 0.30 MG/DL (0.00-0.30)
--- NOTE | 2021-03-30 14:05 | REP ---
INDICATION: left sided headache. COMPARISON: 05/22/2017 TECHNIQUE: 4.5 mm contiguous transaxial sections were obtained from the skull base to the cerebral convexities with thin cuts through the posterior fossa without the administration of intravenous contrast. FINDINGS: The ventricles and sulci are consistent with the patient's age. There are no extra-axial fluid collections. There is no mass effect. The deep cerebral white matter is consistent with the patient's age. The orbital and petrous structures, cerebellopontine angles, and posterior fossa are unremarkable. The sella turcica, cavernous, and paracavernous structures are essentially unremarkable. The visualized portions of the paranasal sinuses and mastoid air cells are clear. Images of the skull base show no gross abnormality. IMPRESSION: Essentially unremarkable CT examination of the brain. No change from the prior exam <Electronically signed by Anton Bassett > 03/30/21 1815
[2021-03-30 14:18] LABS: ERYTHROCYTE SEDIMENTATION RATE 27 mm/hr (0-20)
--- NOTE | 2021-03-30 14:36 | ECGEPIP ---
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
[2021-03-30] MEDS ORDERED: KETOROLAC 30 MG/ML 1ML VIAL IV ONE (15:00)
[2021-03-30] MEDS ORDERED: MAG SULF 1GM/100ML (MAG RUN) 1 GM in IV 1 EA IV ONE (15:05)
[2021-03-30] MEDS ORDERED: dexameTHASONE 4 MG/ML 1ML VIAL (J1100 PER 1MG) IV ONE (15:05)
[2021-03-30 16:31] VITALS: BP 167/96
== END 2021-03-30 16:33 | disposition home or self-care (01) ==
LOC: M ED 12:02
DX: G43.909 Migraine, unspecified, not intractable, without status migrainosus (principal); I10 Essential (primary) hypertension; Z98.84 Bariatric surgery status
CPT/HCPCS: 36415; 70450; 71045; 80048; 82550; 82553; 84484; 85025; 85652; 86140; 93005; 93041; 94760; 96361; 96374; 96375; 99285; J1100; J1200; J2765

== ENCOUNTER → 2021-06-13 | Outpatient (CLI) | payer OTHER ==
[2021-06-13 12:47] LABS: HEMATOCRIT 37.3 % (36.0-47.0); HEMOGLOBIN 12.1 g/dl (12.0-15.5); MEAN CORPUSCULAR HEMOGLOBIN 29.4 pg (27.0-33.0); MEAN CORPUSCULAR HGB CONC 32.4 g/dl (32.0-36.5); MEAN CORPUSCULAR VOLUME 90.8 fl (80.0-96.0); PLATELET COUNT, AUTOMATED 279 10^3/uL (150-450); RED BLOOD COUNT 4.11 10^6/uL (4.00-5.40); WHITE BLOOD COUNT 7.5 10^3/uL (4.0-10.0)
== END ==
LOC: M LAB 11:24
PROVIDERS: ATTEND Registered Nurse
DX: L40.8 Other psoriasis (principal)

== ENCOUNTER → 2021-07-14 | Outpatient (CLI) | payer OTHER ==
[2021-07-14 13:16] LABS: ALBUMIN 3.9 GM/DL (3.2-5.2); BILIRUBIN,TOTAL 0.4 MG/DL (0.2-1.0); CREATININE FOR GFR 1.24 MG/DL (0.55-1.30); GLOMERULAR FILTRATION RATE 48.9 (>58); POTASSIUM SERUM 4.5 MEQ/L (3.5-5.1); TOTAL PROTEIN 7.1 GM/DL (6.4-8.2)
== END ==
LOC: M WUC 08:57
PROVIDERS: ATTEND Registered Nurse
DX: L40.9 Psoriasis, unspecified (principal)

== ENCOUNTER → 2021-07-29 | Outpatient (CLI) | payer OTHER ==
[2021-07-29 10:41] LABS: BILIRUBIN,TOTAL 0.4 MG/DL (0.2-1.0); CALCIUM LEVEL 9.8 MG/DL (8.5-10.1); CHOLESTEROL RISK RATIO 2.247 (<5); CREATININE FOR GFR 1.1 MG/DL (0.55-1.30); GLOMERULAR FILTRATION RATE 56.2 (>58)
[2021-07-29 10:42] LABS: ALBUMIN 3.7 GM/DL (3.2-5.2); FREE T4 1.01 NG/DL (0.76-1.46); THYROID STIMULATING HORMONE 1.3 uIU/ML (0.358-3.740); TOTAL 25(OH) VITAMIN D 48.8 NG/ML (30.0-100.0); URIC ACID 6.7 MG/DL (2.6-6.0)
== END ==
LOC: M WUC 08:20
PROVIDERS: ATTEND Registered Nurse
DX: Z13.29 Encounter for screening for other suspected endocrine disorder (principal); I10 Essential (primary) hypertension; F33.41 Major depressive disorder, recurrent, in partial remission; E78.2 Mixed hyperlipidemia; L40.9 Psoriasis, unspecified

== ENCOUNTER → 2021-11-12 | Outpatient (REF) | payer BC ==
[~2021-11-12] MED LIST changes: -LISI10TA15 PO; +LISI10TA24 PO
== END ==
LOC: M LAB REF 15:48
PROVIDERS: ATTEND Physician Assistant
DX: N39.0 Urinary tract infection, site not specified (principal)

== ENCOUNTER 2022-01-05 10:11 | Emergency (ER) | payer BC ==
[~2022-01-05] VITALS: Ht 162.6 cm; Wt 80.7 kg
[2022-01-05] MEDS ORDERED: NS 1,000 ML IV ONE (10:50)
[2022-01-05 11:44] LABS: BASO # 0.1 10^3/uL (0.0-0.2); EOS # 0.2 10^3/uL (0.0-0.5); EOS % 3.1 % (0.0-3.0); HEMATOCRIT 39.9 % (36.0-47.0); LYMPH # 1.9 10^3/uL (1.5-5.0); LYMPH % 30.4 % (24.0-44.0); MEAN CORPUSCULAR HEMOGLOBIN 29.6 pg (27.0-33.0); MEAN CORPUSCULAR HGB CONC 32.6 g/dl (32.0-36.5); MEAN CORPUSCULAR VOLUME 90.9 fl (80.0-96.0); MONO # 0.6 10^3/uL (0.0-0.8); MONO % 9.7 % (2.0-8.0); NEUTROPHILS # 3.4 10^3/uL (1.5-8.5); NEUTROPHILS % 55.6 % (36.0-66.0); PLATELET COUNT, AUTOMATED 257 10^3/uL (150-450); RED BLOOD COUNT 4.39 10^6/uL (4.00-5.40); WHITE BLOOD COUNT 6.1 10^3/uL (4.0-10.0)
[2022-01-05 12:15] LABS: CK-MB VALUE MASS 1.5 NG/ML (<3.6); CPK CREATINE PHOSPHOKINASE 204 U/L (26-192); MB/CK RELATIVE INDEX 0.74 (< OR =4)
[2022-01-05 12:22] LABS: ALBUMIN 3.9 GM/DL (3.2-5.2); ALT/SGPT 29 U/L (12-78); BILIRUBIN,DIRECT 0.1 MG/DL (0.0-0.2); BILIRUBIN,TOTAL 0.5 MG/DL (0.2-1.0); BLOOD UREA NITROGEN 22 MG/DL (7-18); CALCIUM LEVEL 9.8 MG/DL (8.5-10.1); CARBON DIOXIDE LEVEL 30 MEQ/L (21-32); CHLORIDE LEVEL 104 MEQ/L (98-107); CREATININE FOR GFR 0.84 MG/DL (0.55-1.30); GLOMERULAR FILTRATION RATE > 60.0 (>51); GLUCOSE, FASTING 80 MG/DL (70-100); POTASSIUM SERUM 4.3 MEQ/L (3.5-5.1); SODIUM LEVEL 140 MEQ/L (136-145)
[2022-01-05 13:38] LABS: AMPHETAMINES LEVEL URINE NEGATIVE (NEGATIVE); BARBITURATES URINE NEGATIVE (NEGATIVE); BENZODIAZEPINES URINE NEGATIVE (NEGATIVE); CANNABINOIDS URINE NEGATIVE (NEGATIVE); COCAINE METABOLITE URINE NEGATIVE (NEGATIVE); METHADONE URINE NEGATIVE (NEGATIVE); OPIATES URINE NEGATIVE (NEGATIVE); PHENCYCLIDINE URINE NEGATIVE (NEGATIVE)
[2022-01-05 14:12] VITALS: BP 116/68
== END 2022-01-05 14:44 | disposition home or self-care (01) ==
LOC: M ED 10:11
DX: R07.9 Chest pain, unspecified (principal); W01.0XXA Fall on same level from slipping, tripping and stumbling without subsequent striking against object, initial encounter; I10 Essential (primary) hypertension; E78.5 Hyperlipidemia, unspecified; Z98.84 Bariatric surgery status; Z79.811 Long term (current) use of aromatase inhibitors; Z79.899 Other long term (current) drug therapy

== ENCOUNTER → 2022-01-06 | Outpatient (CLI) | payer BC ==
[2022-01-06 13:01] LABS: HEMATOCRIT 40.1 % (36.0-47.0); MEAN CORPUSCULAR HEMOGLOBIN 30.2 pg (27.0-33.0); MEAN CORPUSCULAR HGB CONC 32.4 g/dl (32.0-36.5); PLATELET COUNT, AUTOMATED 302 10^3/uL (150-450); RED BLOOD COUNT 4.31 10^6/uL (4.00-5.40); WHITE BLOOD COUNT 7.6 10^3/uL (4.0-10.0)
[2022-01-06 13:21] LABS: CREATININE, URINE 91.4 MG/DL; MALB URINE SIEMENS 5.2 MG/L; MAU/CREAT RATIO 5.6 MCG/MG (0.0-30.0)
[2022-01-06 13:32] LABS: ALBUMIN 4.1 GM/DL (3.2-5.2); ALT/SGPT 29 U/L (12-78); BILIRUBIN,TOTAL 0.9 MG/DL (0.2-1.0); BLOOD UREA NITROGEN 19 MG/DL (7-18); CALCIUM LEVEL 9.9 MG/DL (8.5-10.1); CARBON DIOXIDE LEVEL 33 MEQ/L (21-32); CHLORIDE LEVEL 104 MEQ/L (98-107); CREATININE FOR GFR 0.92 MG/DL (0.55-1.30); GLOMERULAR FILTRATION RATE > 60.0 (>51); GLUCOSE, FASTING 72 MG/DL (70-100); SODIUM LEVEL 140 MEQ/L (136-145); TOTAL PROTEIN 7.2 GM/DL (6.4-8.2)
== END ==
LOC: M WUC 10:57
PROVIDERS: ATTEND Registered Nurse
DX: L40.9 Psoriasis, unspecified (principal)

== ENCOUNTER → 2022-02-10 | Outpatient (CLI) | payer BC | LOC: M PLAIMG 12:44 | PROVIDERS: ATTEND Registered Nurse | DX: M50.221 Other cervical disc displacement at C4-C5 level (principal); M54.12 Radiculopathy, cervical region; M50.222 Other cervical disc displacement at C5-C6 level; M50.223 Other cervical disc displacement at C6-C7 level; M48.02 Spinal stenosis, cervical region ==

== ENCOUNTER → 2022-02-10 | Outpatient (CLI) | payer BC | LOC: M WHC 11:40 | PROVIDERS: ATTEND Registered Nurse | DX: R55 Syncope and collapse (principal) ==

== ENCOUNTER → 2022-05-26 | Outpatient (CLI) | payer BC ==
[2022-05-26 12:12] LABS: HEMATOCRIT 40.4 % (36.0-47.0); MEAN CORPUSCULAR HEMOGLOBIN 30.1 pg (27.0-33.0); MEAN CORPUSCULAR HGB CONC 32.2 g/dl (32.0-36.5); MEAN CORPUSCULAR VOLUME 93.5 fl (80.0-96.0); PLATELET COUNT, AUTOMATED 260 10^3/uL (150-450); RED BLOOD COUNT 4.32 10^6/uL (4.00-5.40); WHITE BLOOD COUNT 6.7 10^3/uL (4.0-10.0)
[2022-05-26 12:59] LABS: ALT/SGPT 22 U/L (12-78); BILIRUBIN,TOTAL 0.6 MG/DL (0.2-1.0); BLOOD UREA NITROGEN 29 MG/DL (7-18); CALCIUM LEVEL 9.7 MG/DL (8.5-10.1); CARBON DIOXIDE LEVEL 29 MEQ/L (21-32); CHLORIDE LEVEL 104 MEQ/L (98-107); CHOLESTEROL LEVEL 199 MG/DL (<200); CHOLESTEROL RISK RATIO 2.186 (<5); CREATININE FOR GFR 0.96 MG/DL (0.55-1.30); GLOMERULAR FILTRATION RATE > 60.0 (>51); GLUCOSE, FASTING 82 MG/DL (70-100); HDL CHOLESTEROL 91 MG/DL (>40); NON-HDL-C 108 MG/DL; POTASSIUM SERUM 4.1 MEQ/L (3.5-5.1); SODIUM LEVEL 137 MEQ/L (136-145); TRIGLYCERIDES LEVEL 72 MG/DL (<150)
[2022-05-26 13:00] LABS: ALBUMIN 3.9 GM/DL (3.2-5.2); FREE T3 2.9 PG/ML (2.2-4.0); FREE T4 0.94 NG/DL (0.76-1.46); LDL CHOLESTEROL 94 MG/DL (<100); TOTAL PROTEIN 6.8 GM/DL (6.4-8.2); URIC ACID 7.1 MG/DL (2.6-6.0)
[2022-05-26 13:40] LABS: TOTAL 25(OH) VITAMIN D 54.4 NG/ML (30.0-100.0)
== END ==
LOC: M WUC 09:44
PROVIDERS: ATTEND Registered Nurse
DX: E78.2 Mixed hyperlipidemia (principal); F33.9 Major depressive disorder, recurrent, unspecified; I10 Essential (primary) hypertension

== ENCOUNTER → 2022-06-05 | Outpatient (CLI) | payer BC ==
[2022-06-05 12:03] LABS: BASO # 0.1 10^3/uL (0.0-0.2); BASO % 0.9 % (0.0-1.0); EOS # 0.2 10^3/uL (0.0-0.5); EOS % 2.3 % (0.0-3.0); HEMATOCRIT 39.3 % (36.0-47.0); HEMOGLOBIN 12.9 g/dl (12.0-15.5); LYMPH # 1.5 10^3/uL (1.5-5.0); MEAN CORPUSCULAR HEMOGLOBIN 30.3 pg (27.0-33.0); MEAN CORPUSCULAR HGB CONC 32.8 g/dl (32.0-36.5); MEAN CORPUSCULAR VOLUME 92.3 fl (80.0-96.0); MONO # 0.8 10^3/uL (0.0-0.8); MONO % 11.3 % (2.0-8.0); NEUTROPHILS # 4.4 10^3/uL (1.5-8.5); NEUTROPHILS % 63.2 % (36.0-66.0); PLATELET COUNT, AUTOMATED 244 10^3/uL (150-450); RED BLOOD COUNT 4.26 10^6/uL (4.00-5.40); WHITE BLOOD COUNT 6.9 10^3/uL (4.0-10.0)
[2022-06-05 12:29] LABS: ERYTHROCYTE SEDIMENTATION RATE 25 mm/hr (0-30)
== END ==
LOC: M LAB 11:27
PROVIDERS: ATTEND Physician Assistant
DX: Z96.651 Presence of right artificial knee joint (principal)

== ENCOUNTER 2022-07-01 10:34 | Emergency (ER) | payer BC ==
[~2022-07-01] VITALS: Ht 162.6 cm; Wt 83.9 kg
[2022-07-01 10:35] VITALS: BP 148/87
[2022-07-01] MEDS ORDERED: ACETAMINOPHEN 500 MG TAB PO ONE (12:55)
[2022-07-01] MEDS ORDERED: KETOROLAC 60MG 2ML VIAL IM ONE (12:55)
[2022-07-01] MEDS ORDERED: METH-1164 PO (14:28)
[2022-07-01] MEDS ORDERED: LIDO5DIS41 TD (14:28)
== END 2022-07-01 14:53 | disposition home or self-care (01) ==
LOC: M ED 10:34
DX: M50.30 Other cervical disc degeneration, unspecified cervical region (principal); I10 Essential (primary) hypertension; E78.5 Hyperlipidemia, unspecified; M54.50 Low back pain, unspecified; F32.A Depression, unspecified; Z98.84 Bariatric surgery status; Z79.811 Long term (current) use of aromatase inhibitors; Z79.899 Other long term (current) drug therapy
CPT/HCPCS: 70450; 72125; 96372; 99282; J1885

== ENCOUNTER → 2022-07-02 | Outpatient (CLI) | payer BC ==
[~2022-07-02] MED LIST changes: +LIDO5DIS41 TD; +METH-1164 PO
== END ==
LOC: M SOG 09:30
PROVIDERS: ATTEND Orthopaedic Surgery
DX: M51.36 Other intervertebral disc degeneration, lumbar region (principal)

== ENCOUNTER → 2022-07-07 | Outpatient (CLI) | payer BC | LOC: M WHC 12:15 | PROVIDERS: ATTEND Registered Nurse | DX: Z13.820 Encounter for screening for osteoporosis (principal); Z12.31 Encounter for screening mammogram for malignant neoplasm of breast; M85.89 Other specified disorders of bone density and structure, multiple sites ==

== ENCOUNTER → 2022-07-16 | Outpatient (CLI) | payer BC | LOC: M PLARAD 07:41 | PROVIDERS: ATTEND Orthopaedic Surgery | DX: M54.17 Radiculopathy, lumbosacral region (principal); M51.27 Other intervertebral disc displacement, lumbosacral region; M47.817 Spondylosis without myelopathy or radiculopathy, lumbosacral region ==

== ENCOUNTER → 2022-08-26 | Outpatient (CLI) | payer BC | LOC: M RAD 06:55 | PROVIDERS: ATTEND Orthopaedic Surgery | DX: Z96.651 Presence of right artificial knee joint (principal) | CPT/HCPCS: 78315; A9503 ==

== ENCOUNTER → 2022-09-07 | Outpatient (REF) | payer BC ==
[2022-09-07 14:48] LABS: SOURCE, BODY FLUID RT KNEE; SYNOVIAL FLUID COLOR YELLOW (COLORLESS)
[2022-09-07 15:14] LABS: CRYSTALS, BODY FLUID NONE SEEN (NONE SEEN); SOURCE, BODY FLUID CRYSTALS RT KNEE
[2022-09-07 18:34] LABS: SOURCE, BODY FLUID GLUCOSE RT KNEE
== END ==
LOC: M LAB REF 12:57
PROVIDERS: ATTEND Orthopaedic Surgery
DX: M25.561 Pain in right knee (principal)

== ENCOUNTER → 2022-09-28 | Outpatient (REF) | payer BC ==
[2022-09-28 13:54] LABS: CRYSTALS, BODY FLUID NONE SEEN (NONE SEEN); SOURCE, BODY FLUID CRYSTALS RT KNEE
[2022-09-28 14:37] LABS: SOURCE, BODY FLUID RT KNEE; SYNOVIAL FLUID COLOR AMBER (COLORLESS)
[2022-09-28 14:54] LABS: SOURCE, BODY FLUID GLUCOSE RT KNEE
== END ==
LOC: M LAB REF 13:02
PROVIDERS: ATTEND Orthopaedic Surgery
DX: M25.561 Pain in right knee (principal)

== ENCOUNTER → 2022-12-01 | Outpatient (CLI) | payer BC ==
[2022-12-01 12:46] LABS: HEMATOCRIT 41.6 % (36.0-47.0); HEMOGLOBIN 13.1 g/dl (12.0-15.5); MEAN CORPUSCULAR HEMOGLOBIN 29.4 pg (27.0-33.0); MEAN CORPUSCULAR HGB CONC 31.5 g/dl (32.0-36.5); MEAN CORPUSCULAR VOLUME 93.3 fl (80.0-96.0); PLATELET COUNT, AUTOMATED 264 10^3/uL (150-450); RED BLOOD COUNT 4.46 10^6/uL (4.00-5.40)
[2022-12-01 14:26] LABS: ALBUMIN 3.9 G/DL (3.2-5.2); ALKALINE PHOSPHATASE 82 U/L (46-116); ALT/SGPT 19 U/L (7.0-40); AST/SGOT 28 U/L (<34); BILIRUBIN,TOTAL 0.8 MG/DL (0.3-1.2); BLOOD UREA NITROGEN 21 MG/DL (9-23); CALCIUM LEVEL 9.7 MG/DL (8.5-10.1); CARBON DIOXIDE LEVEL 30 MMOL/L (20-31); CHLORIDE LEVEL 101 MMOL/L (98-107); GLUCOSE, FASTING 138 MG/DL (60-100); POTASSIUM SERUM 4.5 MMOL/L (3.5-5.1); SODIUM LEVEL 139 MMOL/L (136-145); TOTAL PROTEIN 6.7 G/DL (5.7-8.2)
[2022-12-01 19:57] LABS: CREATININE FOR GFR 0.88 MG/DL (0.55-1.30); GLOMERULAR FILTRATION RATE > 60.0 (>51)
== END ==
LOC: M WUC 10:29
PROVIDERS: ATTEND Registered Nurse
DX: L40.9 Psoriasis, unspecified (principal)

== ENCOUNTER → 2022-12-02 | Outpatient (REF) | LOC: M PLAIMG 11:22 | PROVIDERS: ATTEND Internal Medicine | DX: R52 Pain, unspecified (principal) ==

== ENCOUNTER → 2023-02-03 | Outpatient (CLI) | payer BC ==
[2023-02-03 16:57] LABS: ALKALINE PHOSPHATASE 82 U/L (46-116); ALT/SGPT 20 U/L (7.0-40); AST/SGOT 18 U/L (<34); BILIRUBIN,DIRECT 0.2 MG/DL (<0.4); BILIRUBIN,TOTAL 0.5 MG/DL (0.3-1.2); BLOOD UREA NITROGEN 24 MG/DL (9-23); CALCIUM LEVEL 9.9 MG/DL (8.5-10.1); CARBON DIOXIDE LEVEL 30 MMOL/L (20-31); CHLORIDE LEVEL 104 MMOL/L (98-107); CREATININE FOR GFR 0.86 MG/DL (0.55-1.30); GLOMERULAR FILTRATION RATE > 60.0 (>51); GLUCOSE, FASTING 80 MG/DL (60-100); PHOSPHORUS LEVEL 3.5 MG/DL (2.5-4.9); POTASSIUM SERUM 4.2 MMOL/L (3.5-5.1); SODIUM LEVEL 141 MMOL/L (136-145); TOTAL PROTEIN 6.7 G/DL (5.7-8.2)
== END ==
LOC: M WUC 11:05
PROVIDERS: ATTEND Registered Nurse
DX: L40.9 Psoriasis, unspecified (principal)

== ENCOUNTER → 2023-09-24 | Outpatient (CLI) | payer BC ==
[~2023-09-24] MED LIST changes: +MECL-209 PO; -MECL1TAB31 PO
[2023-09-24 16:55] LABS: HEMATOCRIT 42.7 % (36.0-47.0); HEMOGLOBIN 13.7 g/dl (12.0-15.5); MEAN CORPUSCULAR HEMOGLOBIN 30.8 pg (27.0-33.0); MEAN CORPUSCULAR HGB CONC 32.1 g/dl (32.0-36.5); PLATELET COUNT, AUTOMATED 251 10^3/uL (150-450); RED BLOOD COUNT 4.45 10^6/uL (4.00-5.40); WHITE BLOOD COUNT 6.6 10^3/uL (4.0-10.0)
[2023-09-24 17:31] LABS: ALBUMIN 4.1 G/DL (3.2-5.2); ALKALINE PHOSPHATASE 79 U/L (46-116); ALT/SGPT 20 U/L (7.0-40); AST/SGOT 19 U/L (<34); BILIRUBIN,TOTAL 0.6 MG/DL (0.3-1.2); BLOOD UREA NITROGEN 22 MG/DL (9-23); CALCIUM LEVEL 10.1 MG/DL (8.5-10.1); CARBON DIOXIDE LEVEL 33 MMOL/L (20-31); CHLORIDE LEVEL 102 MMOL/L (98-107); CHOLESTEROL LEVEL 208 MG/DL (<200); CHOLESTEROL RISK RATIO 2.52 (<5); CREATININE FOR GFR 0.92 MG/DL (0.55-1.30); FREE T3 3.4 PG/ML (2.3-4.2); FREE T4 1.12 NG/DL (0.89-1.76); GLOMERULAR FILTRATION RATE > 60.0 (>51); GLUCOSE, FASTING 82 MG/DL (60-100); HDL CHOLESTEROL 82.4 MG/DL (>40); LDL CHOLESTEROL 109.4 MG/DL (<100); NON-HDL-C 125.6 MG/DL; SODIUM LEVEL 140 MMOL/L (136-145); THYROID STIMULATING HORMONE 2.179 uIU/ML (0.55-4.78); TOTAL 25(OH) VITAMIN D 50.2 NG/ML (20.0-100.0); TRIGLYCERIDES LEVEL 81 MG/DL (<150)
== END ==
LOC: M WUC 11:06
PROVIDERS: ATTEND Registered Nurse
DX: L40.9 Psoriasis, unspecified (principal); E78.2 Mixed hyperlipidemia; F33.9 Major depressive disorder, recurrent, unspecified; I10 Essential (primary) hypertension

== ENCOUNTER → 2023-11-10 | Outpatient (CLI) | payer BC | LOC: M WHC 07:27 | PROVIDERS: ATTEND Registered Nurse | DX: Z12.31 Encounter for screening mammogram for malignant neoplasm of breast (principal); N63.21 Unspecified lump in the left breast, upper outer quadrant ==

== ENCOUNTER → 2023-12-02 | Outpatient (CLI) | payer BC | LOC: M WUC 11:25 | PROVIDERS: ATTEND Student in an Organized Health Care Education/Training Program | DX: M25.561 Pain in right knee (principal); Z96.651 Presence of right artificial knee joint ==

== ENCOUNTER → 2023-12-17 | Outpatient (REF) | payer BC ==
[2023-12-17 12:14] LABS: ALBUMIN 3.8 G/DL (3.2-5.2); ALKALINE PHOSPHATASE 77 U/L (46-116); ALT/SGPT 18 U/L (7.0-40); AST/SGOT 16 U/L (<34); BILIRUBIN,TOTAL 0.5 MG/DL (0.3-1.2); BLOOD UREA NITROGEN 23 MG/DL (9-23); CALCIUM LEVEL 9.7 MG/DL (8.5-10.1); CARBON DIOXIDE LEVEL 32 MMOL/L (20-31); CHLORIDE LEVEL 105 MMOL/L (98-107); CREATININE FOR GFR 0.88 MG/DL (0.55-1.30); GLOMERULAR FILTRATION RATE > 60.0 (>51); GLUCOSE, FASTING 79 MG/DL (60-100); POTASSIUM SERUM 4.4 MMOL/L (3.5-5.1); SODIUM LEVEL 140 MMOL/L (136-145); TOTAL PROTEIN 6.5 G/DL (5.7-8.2)
== END ==
LOC: M LABWUC 11:06
PROVIDERS: ATTEND Registered Nurse
DX: L40.9 Psoriasis, unspecified (principal)

== ENCOUNTER → 2023-12-23 | Outpatient (CLI) | payer BC ==
[2023-12-23 13:21] LABS: BASO # 0.1 10^3/uL (0.0-0.2); BASO % 1.3 % (0.0-1.0); EOS # 0.3 10^3/uL (0.0-0.5); HEMATOCRIT 42.1 % (36.0-47.0); HEMOGLOBIN 13.8 g/dl (12.0-15.5); LYMPH # 1.5 10^3/uL (1.5-5.0); LYMPH % 20.9 % (24.0-44.0); MEAN CORPUSCULAR HEMOGLOBIN 31.2 pg (27.0-33.0); MEAN CORPUSCULAR HGB CONC 32.8 g/dl (32.0-36.5); MONO # 0.5 10^3/uL (0.0-0.8); MONO % 6.8 % (2.0-8.0); NEUTROPHILS # 4.8 10^3/uL (1.5-8.5); NEUTROPHILS % 66.7 % (36.0-66.0); PLATELET COUNT, AUTOMATED 264 10^3/uL (150-450); RED BLOOD COUNT 4.43 10^6/uL (4.00-5.40); WHITE BLOOD COUNT 7.2 10^3/uL (4.0-10.0)
[2023-12-23 13:52] LABS: ALBUMIN 4.1 G/DL (3.2-5.2); ALKALINE PHOSPHATASE 76 U/L (46-116); ALT/SGPT 24 U/L (7.0-40); AST/SGOT 27 U/L (<34); BILIRUBIN,DIRECT 0.1 MG/DL (<0.4); BILIRUBIN,TOTAL 0.4 MG/DL (0.3-1.2); BLOOD UREA NITROGEN 19 MG/DL (9-23); CALCIUM LEVEL 10.3 MG/DL (8.5-10.1); CARBON DIOXIDE LEVEL 33 MMOL/L (20-31); CHLORIDE LEVEL 103 MMOL/L (98-107); CREATININE FOR GFR 0.88 MG/DL (0.55-1.30); GLOMERULAR FILTRATION RATE > 60.0 (>51); GLUCOSE, FASTING 85 MG/DL (60-100); POTASSIUM SERUM 4.1 MMOL/L (3.5-5.1); SODIUM LEVEL 139 MMOL/L (136-145)
[2023-12-23 13:57] LABS: HEPATITIS B SURFACE ANTIBODY NEGATIVE (POSITIVE)
[2023-12-23 14:22] LABS: HIV 1&2 SCREEN NEGATIVE (NEGATIVE)
[2023-12-23 14:30] LABS: HEPATITIS C VIRUS ABY INDEX 0.02 INDEX (<0.8)
== END ==
LOC: M WUC 09:37
PROVIDERS: ATTEND Nurse Practitioner Family
DX: L40.0 Psoriasis vulgaris (principal)

== ENCOUNTER → 2024-01-25 | Outpatient (CLI) | payer BC ==
[~2024-01-25] MED LIST changes: +E-Z-GAS II EFFERVESCENT PACKET (SODIUM BICARB./CITRIC ACID/SIMETHICONE) As Ordered ONE; +E-Z-HD 98% w/w 340GM SUSP BTL As Ordered ONE; +E-Z-PAQUE 96% w/w SUSP 176GM BTL As Ordered ONE
== END ==
LOC: M RAD 09:15
PROVIDERS: ATTEND Registered Nurse
DX: K21.9 Gastro-esophageal reflux disease without esophagitis (principal); K44.9 Diaphragmatic hernia without obstruction or gangrene; Z98.84 Bariatric surgery status

== ENCOUNTER 2024-06-05 09:29 | Emergency (ER) | payer BC ==
[~2024-06-05] VITALS: Ht 162.6 cm; Wt 86.9 kg
[~2024-06-05 09:29] MED LIST changes: -E-Z-GAS II EFFERVESCENT PACKET (SODIUM BICARB./CITRIC ACID/SIMETHICONE) As Ordered ONE; -E-Z-HD 98% w/w 340GM SUSP BTL As Ordered ONE; -E-Z-PAQUE 96% w/w SUSP 176GM BTL As Ordered ONE; +ROSU5TAB40; -ROSU5TAB5
[2024-06-05] MEDS ORDERED: RISA150S2 (09:47)
[2024-06-05 12:11] VITALS: BP 135/84; TEMP 97; O2SAT 100
== END 2024-06-05 12:38 | disposition home or self-care (01) ==
LOC: M ED 09:29
DX: S63.601A Unspecified sprain of right thumb, initial encounter (principal); W01.0XXA Fall on same level from slipping, tripping and stumbling without subsequent striking against object, initial encounter; G80.9 Cerebral palsy, unspecified; I10 Essential (primary) hypertension; M54.50 Low back pain, unspecified; F32.A Depression, unspecified; Z98.84 Bariatric surgery status; Z79.899 Other long term (current) drug therapy; Z79.811 Long term (current) use of aromatase inhibitors; Y92.009 Unspecified place in unspecified non-institutional (private) residence as the place of occurrence of the external cause; Y93.89 Activity, other specified; Y99.9 Unspecified external cause status

== ENCOUNTER → 2024-11-06 | Outpatient (CLI) | payer BC ==
[~2024-11-06] MED LIST changes: +GABA-1172 PO; -GABA-282 PO; +RISA150S2; -ROSU5TAB40; +ROSU5TAB49
[2024-11-06 13:01] LABS: HEMATOCRIT 43.1 % (36.0-47.0); HEMOGLOBIN 13.9 g/dl (12.0-15.5); MEAN CORPUSCULAR HEMOGLOBIN 30.3 pg (27.0-33.0); MEAN CORPUSCULAR HGB CONC 32.3 g/dl (32.0-36.5); MEAN CORPUSCULAR VOLUME 94.1 fl (80.0-96.0); PLATELET COUNT, AUTOMATED 294 10^3/uL (150-450); RED BLOOD COUNT 4.58 10^6/uL (4.00-5.40); WHITE BLOOD COUNT 8.6 10^3/uL (4.0-10.0)
[2024-11-06 13:27] LABS: URIC ACID 5.6 MG/DL (3.1-7.8)
[2024-11-06 13:30] LABS: CPK CREATINE PHOSPHOKINASE 116 U/L (34-145); CREATININE, URINE 146.9 MG/DL; MAU/CREAT RATIO 2.7 MCG/MG (0.0-30.0)
[2024-11-06 13:31] LABS: ALBUMIN 4.1 G/DL (3.2-5.2); ALKALINE PHOSPHATASE 83 U/L (35-104); ALT/SGPT 23 U/L (7.0-40); AST/SGOT 21 U/L (<34); BILIRUBIN,TOTAL 0.5 MG/DL (0.3-1.2); BLOOD UREA NITROGEN 18 MG/DL (9-23); CALCIUM LEVEL 10.1 MG/DL (8.5-10.1); CARBON DIOXIDE LEVEL 33 MMOL/L (20-31); CHLORIDE LEVEL 99 MMOL/L (98-107); CHOLESTEROL LEVEL 215 MG/DL (<200); CHOLESTEROL RISK RATIO 2.56 (<5); CREATININE FOR GFR 0.85 MG/DL (0.55-1.30); FOLATE > 24.00 NG/ML (>5.4); FREE T3 3.2 PG/ML (2.3-4.2); FREE T4 1.25 NG/DL (0.89-1.76); GLOMERULAR FILTRATION RATE > 60.0 (>51); GLUCOSE, FASTING 77 MG/DL (60-100); HDL CHOLESTEROL 83.8 MG/DL (>40); LDL CHOLESTEROL 106.6 MG/DL (<100); NON-HDL-C 131.2 MG/DL; POTASSIUM SERUM 4.2 MMOL/L (3.5-5.1); SODIUM LEVEL 142 MMOL/L (136-145); THYROID STIMULATING HORMONE 1.885 uIU/ML (0.55-4.78); TOTAL 25(OH) VITAMIN D 60.4 NG/ML (20.0-100.0); TOTAL PROTEIN 7.4 G/DL (5.7-8.2); TRIGLYCERIDES LEVEL 123 MG/DL (<150)
[2024-11-06 13:34] LABS: VITAMIN B12 LEVEL > 2000 PG/ML (211-911)
== END ==
LOC: M WUC 10:04
PROVIDERS: ATTEND Registered Nurse
DX: G31.84 Mild cognitive impairment of uncertain or unknown etiology (principal); I10 Essential (primary) hypertension; F32.9 Major depressive disorder, single episode, unspecified; E78.2 Mixed hyperlipidemia

== ENCOUNTER 2024-11-20 08:18 | Day surgery (SDC) | payer BC ==
[~2024-11-20] VITALS: Ht 162.6 cm; Wt 76.1 kg
[~2024-11-20 08:18] MED LIST changes: +B-12100010 PO; +CALCCAP4 PO; +CRAN450T4 PO; +IBUP80TA PO; +LIDOCAINE 2% 100MG/5ML SDV (FOR ANES.) As Ordered ONE; +MULT-123 PO; +OMEP-173 PO; +PHEN37.58 PO; +RISA150P SQ; -ROSU5TAB49; +ROSU5TAB49 PO; +fentaNYL 100 MCG/2 ML INJECTION As Ordered ONE; +propofoL 500 MG/50 ML VIAL As Ordered ONE
[2024-11-20] MEDS ORDERED: ePHEDrine SULFATE 25 MG/5 ML(5MG/ML) SYRINGE As Ordered ONE (11:09)
[2024-11-20 11:11] VITALS: TEMP 97.3
[2024-11-20 11:34] VITALS: BP 117/72; O2SAT 98
== END 2024-11-20 11:39 | disposition home or self-care (01) ==
LOC: M OPP 08:18
PROVIDERS: ATTEND Internal Medicine Gastroenterology
DX: Z12.11 Encounter for screening for malignant neoplasm of colon (principal); K57.30 Diverticulosis of large intestine without perforation or abscess without bleeding; K64.8 Other hemorrhoids; K44.9 Diaphragmatic hernia without obstruction or gangrene; R13.12 Dysphagia, oropharyngeal phase; R13.11 Dysphagia, oral phase; K22.2 Esophageal obstruction; R93.3 Abnormal findings on diagnostic imaging of other parts of digestive tract; Z98.84 Bariatric surgery status; Z79.899 Other long term (current) drug therapy
CPT/HCPCS: 43249; 45378; J3010